=== PATIENT | female | born 1990 | race Caucasian/White ===

== ENCOUNTER 2016-10-31 15:31 | Emergency (ER) | payer SELFPAY ==
[~2016-10-31] VITALS: Ht 160 cm; Wt 56.0 kg
[2016-10-31 15:57] VITALS: BP 97/71; PULSE 97; RESP 18; TEMP 100; O2SAT 98
--- NOTE | 2016-10-31 16:05 | PD ---
HPI Chief Complaint: Cold / Flu Symptoms Time Seen by Provider: 16:05 Travel History International Travel<30 days: No Contact w/Intl Traveler<30days: No Traveled to known affect area: No History of Present Illness HPI 26-year-old female presents to the emergency department with 2 day history of increasing fever, chills, myalgias, cough, and generalized malaise. Patient has decreased appetite but no nausea vomiting or diarrhea. Patient is coughing clear phlegm but no shortness of breath or wheezing. Patient denies abdominal pain or urinary symptoms. She is allergic to codeine. PFS Past Medical History ?: Not LMP: 2-3 WEEKS AGO Social History Alcohol Use: No Tobacco Use: No Substance Use: No Allergies-Medications (Allergen,Severity, Reaction): Coded Allergies: Codeine (Verified Allergy, Intermediate, RASH, 10/31/16) Reported Meds & Prescriptions Reported Meds & Active Scripts Active Tamiflu (Oseltamivir Phosphate) 75 Mg Cap 75 Mg PO BID 5 Days Review of Systems Except as stated in HPI: all other systems reviewed are Neg General / Constitutional: Positive: Fever, Chills Eyes: No: Visual changes HENT: Positive: Headaches, Rhinitis, Rhinorrhea, Congestion, No: Vertigo, Lightheadedness, Sore Throat, Nosebleed, Neck Stiffness, Neck Pain, Gingival Bleeding, Dental Difficulties, Ear Discharge, Earache Cardiovascular: No: Chest Pain or Discomfort Respiratory: Positive: Cough, No: Shortness of Breath, Wheezing, Sneezing Gastrointestinal: Positive: Loss of Appetite, No: Nausea, Vomiting, Diarrhea, Abdominal Pain Genitourinary: No: Dysuria Musculoskeletal: No: Pain Skin: No Rash Neurologic: No: Weakness Psychiatric: No: Depression Endocrine: No: Polydipsia Hematologic/Lymphatic: No: Easy Bruising Physical Exam Narrative GENERAL: Patient appears ill but not septic. SKIN: Warm and dry. Mild pallor with normal turgor. HEAD: Atraumatic. Normocephalic. EYES: Pupils equal and round. No scleral icterus. No injection or drainage. ENT: No nasal bleeding or discharge. Mucous membranes pink and moist. TMs are clear bilaterally. Pharynx is unremarkable. Airway is patent. NECK: Trachea midline. Supple and nontender. CARDIOVASCULAR: Regular rate and rhythm. RESPIRATORY: No accessory muscle use. Clear to auscultation. Breath sounds equal bilaterally. GASTROINTESTINAL: Abdomen soft, non-tender, nondistended. Hepatic and splenic margins not palpable. MUSCULOSKELETAL: Extremities without clubbing, cyanosis, or edema. No obvious deformities. NEUROLOGICAL: Awake and alert. No obvious cranial nerve deficits. Motor grossly within normal limits. Five out of 5 muscle strength in the arms and legs. Normal speech. PSYCHIATRIC: Appropriate mood and affect; insight and judgment normal. Data Data Last Documented VS Vital Signs Date Time Temp Pulse Resp B/P Pulse Ox O2 Delivery O2 Flow Rate FiO2 10/31/16 15:57 100.0 97 18 97/71 98 MDM Medical Decision Making Medical Screen Exam Complete: Yes Emergency Medical Condition: Yes Differential Diagnosis Febrile illness. Viral illness. Influenza. Narrative Course Patient is medically stable at time of exam. Based on the patient's history and physical I feel that she does have influenza. I will treat the patient with Tamiflu 75 mg twice a day 5 days. Patient is to rest push fluids take Tylenol and ibuprofen as needed. Patient to refrain from working for the next 5 days or until fever free for 24 hours. Patient can return to emergency Department with worsening symptoms if necessary. Diagnosis Primary Impression: Influenza Patient Instructions: General Instructions, H1N1 Influenza (ED) Additional Instructions: Based on the patient's history and physical I feel that she does have influenza. I will treat the patient with Tamiflu 75 mg twice a day 5 days. Patient is to rest push fluids take Tylenol and ibuprofen as needed. Patient to refrain from working for the next 5 days or until fever free for 24 hours. Patient can return to emergency Department with worsening symptoms if necessary. Scripts Oseltamivir (Tamiflu)75 Mg Cap75 Mg PO BID 5 Days Ref 0 Prov:Lia Osorio MD 10/31/16 Disposition: 01 DISCHARGE HOME Condition: Stable Joseph Vivar Oct 31, 2016 16:05
[2016-10-31] MEDS ORDERED: OSEL75 PO (16:09)
== END 2016-10-31 16:22 | disposition home or self-care (01) ==
LOC: PHEFT 15:31
DX: R50.9 Fever, unspecified (principal); J10.89 Influenza due to other identified influenza virus with other manifestations
CPT/HCPCS: 99283

== ENCOUNTER 2017-09-25 22:35 | Emergency (ER) | payer MEDICAID ==
[~2017-09-25 22:35] MED LIST: OSEL75 PO
[2017-09-25 22:43] VITALS: BP 130/78; PULSE 93; RESP 20; TEMP 97.9; O2SAT 100
[2017-09-26] MEDS ORDERED: KETOROLAC TROMETHAMINE 60 MG/2 ML (IM) VIAL IM ONE
[2017-09-26 00:42] LABS: BILIRUBIN, URINE NEG (NEG); BLOOD, URINE NEG (NEG); GLUCOSE,URINE NEG (NEG); KETONE, URINE NEG (NEG); NITRITE,URINE POS (NEG); URINE LEUKOCYTE ESTERASE TRACE (NEG)
--- NOTE | 2017-09-26 00:43 | PD ---
HPI . Left rib pain Chief Complaint: Musculoskeletal Complaint Time Seen by Provider: 23:59 Travel History International Travel<30 days: No Contact w/Intl Traveler<30days: No Traveled to known affect area: No History of Present Illness HPI This patient presents with chief complaint of pain in her left rib cage for about 2 weeks. She rates the pain 9/10 and states that it is exacerbated by movement and breathing. She denies any cough fever or difficulty breathing. She denies any urinary tract symptoms such as dysuria, frequency or urgency. This patient is . PFSH Past Medical History Medical History: Denies Significant Hx Diminished Hearing: No Tetanus Vaccination: Unknown Influenza Vaccination: No ?: LMP: APPROX AUG 03 2017 : 2 Para: 1 Past Surgical History Surgical History: No Previous Surgery Social History Alcohol Use: No Tobacco Use: No Substance Use: No Allergies-Medications (Allergen,Severity, Reaction): Coded Allergies: codeine (Unverified Allergy, Intermediate, RASH, 04/17/17) Reported Meds & Prescriptions Reported Meds & Active Scripts Active Tamiflu (Oseltamivir Phosphate) 75 Mg Cap 75 Mg PO BID 5 Days Review of Systems Except as stated in HPI: all other systems reviewed are Neg General / Constitutional: No: Fever, Chills Cardiovascular: No: Chest Pain or Discomfort Respiratory: No: Cough, Shortness of Breath Gastrointestinal: No: Nausea, Vomiting, Diarrhea Genitourinary: Positive: Flank Pain, No: Urgency, Frequency, Dysuria Physical Exam Narrative GENERAL: Awake and alert and in no distress. SKIN: warm/dry. Normal color and turgor. HEAD: Normocephalic. Atraumatic. EYES: Pupils equal and round. No scleral icterus. No injection or drainage. ENT: No nasal bleeding or discharge. Mucous membranes pink and moist. NECK: Trachea midline. Full range of motion without pain.. CARDIOVASCULAR: Regular rate and rhythm. Heart sounds are normal. RESPIRATORY: No accessory muscle use. Clear to auscultation. Breath sounds equal bilaterally. Tenderness to palpation in the left lateral chest wall. GASTROINTESTINAL: Abdomen soft. Nontender. Bowel sounds present. Nondistended. No CVA tenderness. MUSCULOSKELETAL: No obvious deformities. NEUROLOGICAL: Awake and alert. No obvious cranial nerve deficits. Motor grossly within normal limits. Normal speech. PSYCHIATRIC: Appropriate mood and affect; insight and judgment normal. Data Data Last Documented VS Vital Signs Date Time Temp Pulse Resp B/P (MAP) Pulse Ox O2 Delivery O2 Flow Rate FiO2 09/26/17 00:17 20 09/25/17 22:43 97.9 93 130/78 (95) 100 Orders Orders Ketorolac Inj (Toradol Inj) (09/26/17 00:00) Urinalysis - C+S If Indicated (09/26/17 00:30) Ed Urine Pregnancytest Poc (09/26/17 00:30) Urine Culture (09/26/17 00:30) Labs Laboratory Tests Test 09/26/17 00:30 Urine Color YELLOW Urine Turbidity MOD Urine pH 6.0 Urine Specific [place] 1.021 Urine Protein NEG mg/dL Urine Glucose (UA) NEG mg/dL Urine Ketones NEG mg/dL Urine Occult Blood NEG Urine Nitrite POS Urine Bilirubin NEG Urine Leukocyte Esterase TRACE Urine WBC 3-5 /hpf Urine Squamous Epithelial Cells 0-5 /hpf Urine Amorphous Sediment MOD Urine Bacteria MANY /hpf Urine Mucus MOD /lpf Microscopic Urinalysis Comment CULTURE INDICATED MDM Medical Decision Making Medical Screen Exam Complete: Yes Emergency Medical Condition: Yes Interpretation(s) EKG shows a sinus rhythm with no acute ischemic change. Differential Diagnosis Differential diagnosis of chest pain includes but is not limited to musculoskeletal pain, pulmonary embolism, acute coronary syndrome, pneumonia, pleurisy Narrative Course This patient presents complaining with left sided chest wall pain. The pain is musculoskeletal in nature. She does not have dyspnea, tachypnea, tachycardia. She is . A urinalysis was obtained. UA>>pos nit, trace LE, many bact, mod mucous----so her UA is equivocal. Since she is , she will be treated with Macrobid. Diagnosis Primary Impression: Left flank pain Additional Impression: Possible urinary tract infection Patient Instructions: Flank Pain (ED), General Instructions Med/Other Pt SpecificInfo: Prescription(s) given Scripts Nitrofurantoin Monohydrate Macrocrystals (Macrobid) 100 Mg Cap 100 MG PO BID for Infection for 5 Days, #10 CAP 0 Refills Prov: Lia Osorio MD 09/26/17 Disposition: 01 DISCHARGE HOME Condition: Stable Lia Osorio MD Sep 26, 2017 00:43
[2017-09-26 01:02] LABS: URINE COLOR YELLOW (YELLW/STRAW)
[2017-09-26 01:03] LABS: AMORPHOUS SEDIMENT, URINE MOD; BACTERIA, URINE MANY /hpf; MUCUS URINE MOD /lpf (OCC); SQUAMOUS EPITHELIAL CELL URINE 0-5 /hpf (0-5)
[2017-09-26] MEDS ORDERED: MACR100C2 PO (01:23)
[2017-09-26 01:45] VITALS: BP 128/74
--- NOTE | 2017-09-26 12:14 | EKG ---
Date Performed: 09/25/2017 Time Performed: 22:50:53 PTAGE: 27 years EKG: Sinus rhythm WITH SINUS ARRHYTHMIA WITH SHORT UT INTERVAL BORDERLINE ECG NO PREVIOUS TRACING DOCTOR: Ivelisse Adler Interpretating Date/Time 09/26/2017 12:13:08
== END 2017-09-26 03:37 | disposition home or self-care (01) ==
LOC: PHED 22:35
DX: O26.899 Other specified pregnancy related conditions, unspecified trimester (principal); R10.9 Unspecified abdominal pain; R82.71 Bacteriuria; Z3A.00 Weeks of gestation of pregnancy not specified
CPT/HCPCS: 81001; 84703; 87077; 87086; 87186; 93005; 99284

== ENCOUNTER 2017-11-05 17:30 | Observation (INO) | payer MEDICAID, OTHER ==
[~2017-11-05] VITALS: Ht 160 cm; Wt 64.0 kg
[~2017-11-05 17:30] MED LIST changes: +MACR100C2 PO
[2017-11-05 17:44] VITALS: BP 112/60; PULSE 101; RESP 16; TEMP 99.9; O2SAT 99
[2017-11-05 17:54] LABS: BILIRUBIN, URINE NEG (NEG); BLOOD, URINE SMALL (NEG); GLUCOSE,URINE 500 mg/dL (NEG); KETONE, URINE 80 OR GREATER mg/dL (NEG); NITRITE,URINE POS (NEG); URINE COLOR YELLOW (YELLW/STRAW); URINE LEUKOCYTE ESTERASE SMALL (NEG)
[2017-11-05 18:27] LABS: WHITE BLOOD CELL CLUMPS FEW
[2017-11-05 18:28] LABS: BACTERIA, URINE FEW /hpf
[2017-11-05] MEDS ORDERED: SODIUM CHLOR 0.9% 1000 ML INJ 1,000 ML IV SCH ×2 (19:55→22:00)
[2017-11-05] MEDS ORDERED: ACETAMINOPHEN 325 MG TAB PO ONE (20:00)
[2017-11-05] MEDS ORDERED: cefTRIAXone INJ 1,000 MG in SODIUM CHLORIDE 0.9% INJ 100 ML IV ONE (20:00)
[2017-11-05 20:23] LABS: AUTOMATED NEUTROPHIL # 9.9 TH/MM3 (1.8-7.7); BASOPHIL % 0.3 % (0.0-2.0); EOSINOPHIL % 0.2 % (0.0-4.0); HEMATOCRIT 33.5 % (35.0-46.0); HEMOGLOBIN 11.1 GM/DL (11.6-15.3); LYMPH % 8.3 % (9.0-44.0); MEAN CELL VOLUME 95.8 FL (80.0-100.0); MEAN CORPUSCULAR HEMOGLOBIN 31.7 PG (27.0-34.0); MEAN PLATELET VOLUME 6.5 FL (7.0-11.0); MONO % 8.4 % (0.0-8.0); NEUT % 82.8 % (16.0-70.0); PLATELET COUNT 193 TH/MM3 (150-450); RED BLOOD COUNT 3.49 MIL/MM3 (4.00-5.30); RED CELL DISTRIBUTION WIDTH 13.2 % (11.6-17.2); WHITE BLOOD COUNT 11.9 TH/MM3 (4.0-11.0)
[2017-11-05 20:37] LABS: CHLORIDE 102 MEQ/L (98-107); SODIUM (NA) 133 MEQ/L (136-145)
[2017-11-05 20:42] LABS: CALCIUM 8.4 MG/DL (8.5-10.1)
[2017-11-05 20:43] LABS: ALBUMIN 2.6 GM/DL (3.4-5.0); BICARBONATE 21.9 MEQ/L (21.0-32.0); BLOOD UREA NITROGEN 7 MG/DL (7-18); GLUCOSE,RANDOM 83 MG/DL (74-106)
[2017-11-05 20:46] LABS: ALT (GPT) 14 U/L (10-53); AST (GOT) 13 U/L (15-37); CREATININE 0.62 MG/DL (0.50-1.00); GLOMERULAR FILTRATION RATE 114 ML/MIN (>89)
[2017-11-05 20:47] LABS: TOTAL BILIRUBIN ADULT 0.5 MG/DL (0.2-1.0)
[2017-11-05 20:49] LABS: ALKALINE PHOSPHATASE 54 U/L (45-117)
--- NOTE | 2017-11-05 21:23 | RADRPT ---
EXAM DATE/TIME: 11/05/2017 20:31 [facility] COMPARISON: No previous studies available for comparison. INDICATIONS : Right flank pain. MEDICAL HISTORY : . SURGICAL HISTORY : None. ENCOUNTER: Initial ACUITY: 1 day PAIN SCORE: 7/10 LOCATION: Bilateral flank MEASUREMENTS: RIGHT KIDNEY: 12.4 x 6.8 x 7.0 cm LEFT KIDNEY: 11.1 x 4.2 x 5.2 cm FINDINGS: RIGHT KIDNEY: Renal cortex is normal thickness. There is moderate dilation of the collecting system and dilation o f the right ureter measuring up to 8 mm in size. LEFT KIDNEY: Renal cortex is normal in thickness and echotexture. No hydronephrosis, stone, or mass. BLADDER: Within normal limits given the degree of distension. A prevoid volume is estimated at 193 mL and pos t void volume is estimated at 50 mL. Gestational sac is seen in the pelvis. CONCLUSION: Right-sided hydronephrosis and hydroureter. Guy Goldsmith MD on November 05, 2017 at 21:19 Board Certified Radiologist. This report was verified electronically.
--- NOTE | 2017-11-05 21:43 | PD ---
HPI Chief Complaint: Complaint Time Seen by Provider: 19:51 Travel History International Travel<30 days: No Contact w/Intl Traveler<30days: No Traveled to known affect area: No History of Present Illness HPI 27-year-old female that presents to the ED for evaluation of right flank pain. Patient has had right flank pain for today. Per patient she has a history of kidney infections in the past. She is about 4 months per patient. She had an ultrasound when she was 6 weeks and otherwise she has not had any since. This is having dysuria and polyuria. Denies any problems with the baby and feels like the baby is moving. No other medical issues. No nausea or vomiting. She does not know the [employer] she sees but she tells me that she goes to the [facility]. She denies any injury or trauma. No bleeding or discharge. Allergy to codeine [facility] Past Medical History Medical History: Denies Significant Hx Diminished Hearing: No Tetanus Vaccination: > 5 Years Influenza Vaccination: No ?: : 2 Para: 1 Social History Alcohol Use: No Tobacco Use: No Substance Use: No Allergies-Medications (Allergen,Severity, Reaction): Coded Allergies: codeine (Unverified Allergy, Intermediate, RASH, 11/05/17) Reported Meds & Prescriptions Reported Meds & Active Scripts Active No Active Prescriptions or Reported Medications Review of Systems Except as stated in HPI: all other systems reviewed are Neg Physical Exam Narrative GENERAL: SKIN: Warm and dry. HEAD: Atraumatic. Normocephalic. EYES: Pupils equal and round. No scleral icterus. No injection or drainage. ENT: No nasal bleeding or discharge. Mucous membranes pink and moist. NECK: Trachea midline. No JVD. CARDIOVASCULAR: Regular rate and rhythm. RESPIRATORY: No accessory muscle use. Clear to auscultation. Breath sounds equal bilaterally. GASTROINTESTINAL: Abdomen soft, non-tender, nondistended. Hepatic and splenic margins not palpable. MUSCULOSKELETAL: Extremities without clubbing, cyanosis, or edema. No obvious deformities. Patient has reproducible CVA tenderness on the right side. NEUROLOGICAL: Awake and alert. No obvious cranial nerve deficits. Motor grossly within normal limits. Five out of 5 muscle strength in the arms and legs. Normal speech. PSYCHIATRIC: Appropriate mood and affect; insight and judgment normal. Data Data Last Documented VS Vital Signs Date Time Temp Pulse Resp B/P (MAP) Pulse Ox O2 Delivery O2 Flow Rate FiO2 11/05/17 17:44 99.9 101 16 112/60 (77) 99 Orders Orders Urinalysis - C+S If Indicated (11/05/17 17:47) Urine Culture (11/05/17 17:50) Beta Hcg (Quant/Titer) (11/05/17 19:55) Complete Blood Count With Diff (11/05/17 19:55) Comprehensive Metabolic Panel (11/05/17 19:55) Lipase (11/05/17 19:55) Iv Access Insert/Monitor (11/05/17 19:55) Sodium Chlor 0.9% 1000 Ml Inj (Ns 1000 M (11/05/17 19:55) Ceftriaxone Inj (Rocephin Inj) (11/05/17 20:00) Acetaminophen (Tylenol) (11/05/17 20:00) Ed Poc Ultrasound (11/05/17 ) Us Kidney/Renal/Bladder (11/05/17 ) Lactic Acid Sepsis Protocol (11/05/17 20:20) Admit Order (Ed Use Only) (11/05/17 21:51) Labs Laboratory Tests Test 11/05/17 17:50 11/05/17 20:15 11/05/17 20:30 Urine Color YELLOW Urine Turbidity SL CLOUDY Urine pH 5.0 Urine Specific [place] 1.015 Urine Protein 30 mg/dL Urine Glucose (UA) 500 mg/dL Urine Ketones 80 OR GREATER mg/dL Urine Occult Blood SMALL Urine Nitrite POS Urine Bilirubin NEG Urine Urobilinogen 0.2 MG/DL Urine Leukocyte Esterase SMALL Urine RBC 4-9 /hpf Urine WBC 25-49 /hpf Urine WBC Clumps FEW Urine Squamous Epithelial Cells 6-8 /hpf Urine Bacteria FEW /hpf Microscopic Urinalysis Comment CULTURE INDICATED White Blood Count 11.9 TH/MM3 Red Blood Count 3.49 MIL/MM3 Hemoglobin 11.1 GM/DL Hematocrit 33.5 % Mean Corpuscular Volume 95.8 FL Mean Corpuscular Hemoglobin 31.7 PG Mean Corpuscular Hemoglobin Concent 33.0 % Red Cell Distribution Width 13.2 % Platelet Count 193 TH/MM3 Mean Platelet Volume 6.5 FL Neutrophils (%) (Auto) 82.8 % Lymphocytes (%) (Auto) 8.3 % Monocytes (%) (Auto) 8.4 % Eosinophils (%) (Auto) 0.2 % Basophils (%) (Auto) 0.3 % Neutrophils # (Auto) 9.9 TH/MM3 Lymphocytes # (Auto) 1.0 TH/MM3 Monocytes # (Auto) 1.0 TH/MM3 Eosinophils # (Auto) 0.0 TH/MM3 Basophils # (Auto) 0.0 TH/MM3 CBC Comment DIFF FINAL Differential Comment Blood Urea Nitrogen 7 MG/DL Creatinine 0.62 MG/DL Random Glucose 83 MG/DL Total Protein 7.0 GM/DL Albumin 2.6 GM/DL Calcium Level 8.4 MG/DL Alkaline Phosphatase 54 U/L Aspartate Amino Transf (AST/SGOT) 13 U/L Alanine Aminotransferase (ALT/SGPT) 14 U/L Total Bilirubin 0.5 MG/DL Sodium Level 133 MEQ/L Potassium Level 3.6 MEQ/L Chloride Level 102 MEQ/L Carbon Dioxide Level 21.9 MEQ/L Anion Gap 9 MEQ/L Estimat Glomerular Filtration Rate 114 ML/MIN Lipase 110 U/L Human Chorionic Gonadotropin, Quant 72557 MIU/ML Lactic Acid Level 0.8 mmol/L MDM Medical Decision Making Medical Screen Exam Complete: Yes Emergency Medical Condition: Yes Medical Record Reviewed: Yes Interpretation(s) Last Impressions Renal Ultrasound 11/05/17 0000 Signed Impressions: Service Date/Time: Sunday, November 05, 2017 20:31 - CONCLUSION: Right-sided hydronephrosis and hydroureter. Guy Goldsmith MD CBC & BMP Diagram 11/05/17 20:15 Total Protein 7.0, Albumin 2.6 L, Calcium Level 8.4 L, Alkaline Phosphatase 54, Aspartate Amino Transf (AST/SGOT) 13 L, Alanine Aminotransferase (ALT/SGPT) 14, Total Bilirubin 0.5 UA shows signs of UTI Differential Diagnosis Pyelonephritis versus UTI versus cystitis versus sepsis Narrative Course 27-year-old female that presents to the ED for evaluation of right flank pain. Patient was properly examined and was found to have signs and symptoms concerning for pyelonephritis. Labs and imaging were done. My attending perform an ultrasound at bedside that showed IUP of about 16 weeks. Please refer to her note. Labs and imaging that showed hydronephrosis as well as UTI with leukocytosis. Patient still very symptomatic. My attending recommends that I speak with the patient's GENETIC ENGINEER which appears to be Dr. Cruz's nurse practitioner. A call has been placed to them. I spoke with Dr. Cruz over the phone who agrees to admission to himself but he wants the patient to be admitted to the main hospital as he does not come here. He states that the patient can take narcotic pain medication to help alleviate some of her symptoms and wants me to continue patient on the ceftriaxone as well as started patient on 100 mls on normal saline. Patient was told this and agrees to admission. Patient was admitted. Diagnosis Primary Impression: Pyelonephritis affecting in first trimester Admitting Information Admitting Physician Requests: Admit Scripts No Active Prescriptions or Reported Meds Efra To Nov 05, 2017 21:43
--- NOTE | 2017-11-05 21:48 | PD ---
Physical Exam Date Seen by Provider: Nov 05, 2017 Time Seen by Provider: 21:00 Narrative GENERAL: Well-developed well-nourished female no acute distress no respiratory distress SKIN: Warm and dry. CARDIOVASCULAR: Regular rate and rhythm without murmurs, gallops, or rubs. RESPIRATORY: Breath sounds equal bilaterally. No accessory muscle use. GASTROINTESTINAL: Abdomen soft, non-tender, nondistended. Data Data Last Documented VS Vital Signs Date Time Temp Pulse Resp B/P (MAP) Pulse Ox O2 Delivery O2 Flow Rate FiO2 11/05/17 17:44 99.9 101 16 112/60 (77) 99 Orders Orders Urinalysis - C+S If Indicated (11/05/17 17:47) Urine Culture (11/05/17 17:50) Beta Hcg (Quant/Titer) (11/05/17 19:55) Complete Blood Count With Diff (11/05/17 19:55) Comprehensive Metabolic Panel (11/05/17 19:55) Lipase (11/05/17 19:55) Iv Access Insert/Monitor (11/05/17 19:55) Sodium Chlor 0.9% 1000 Ml Inj (Ns 1000 M (11/05/17 19:55) Ceftriaxone Inj (Rocephin Inj) (11/05/17 20:00) Acetaminophen (Tylenol) (11/05/17 20:00) Ed Poc Ultrasound (11/05/17 ) Us Kidney/Renal/Bladder (11/05/17 ) Lactic Acid Sepsis Protocol (11/05/17 20:20) Admit Order (Ed Use Only) (11/05/17 21:51) Labs Laboratory Tests Test 11/05/17 17:50 11/05/17 20:15 11/05/17 20:30 Urine Color YELLOW Urine Turbidity SL CLOUDY Urine pH 5.0 Urine Specific [place] 1.015 Urine Protein 30 mg/dL Urine Glucose (UA) 500 mg/dL Urine Ketones 80 OR GREATER mg/dL Urine Occult Blood SMALL Urine Nitrite POS Urine Bilirubin NEG Urine Urobilinogen 0.2 MG/DL Urine Leukocyte Esterase SMALL Urine RBC 4-9 /hpf Urine WBC 25-49 /hpf Urine WBC Clumps FEW Urine Squamous Epithelial Cells 6-8 /hpf Urine Bacteria FEW /hpf Microscopic Urinalysis Comment CULTURE INDICATED White Blood Count 11.9 TH/MM3 Red Blood Count 3.49 MIL/MM3 Hemoglobin 11.1 GM/DL Hematocrit 33.5 % Mean Corpuscular Volume 95.8 FL Mean Corpuscular Hemoglobin 31.7 PG Mean Corpuscular Hemoglobin Concent 33.0 % Red Cell Distribution Width 13.2 % Platelet Count 193 TH/MM3 Mean Platelet Volume 6.5 FL Neutrophils (%) (Auto) 82.8 % Lymphocytes (%) (Auto) 8.3 % Monocytes (%) (Auto) 8.4 % Eosinophils (%) (Auto) 0.2 % Basophils (%) (Auto) 0.3 % Neutrophils # (Auto) 9.9 TH/MM3 Lymphocytes # (Auto) 1.0 TH/MM3 Monocytes # (Auto) 1.0 TH/MM3 Eosinophils # (Auto) 0.0 TH/MM3 Basophils # (Auto) 0.0 TH/MM3 CBC Comment DIFF FINAL Differential Comment Blood Urea Nitrogen 7 MG/DL Creatinine 0.62 MG/DL Random Glucose 83 MG/DL Total Protein 7.0 GM/DL Albumin 2.6 GM/DL Calcium Level 8.4 MG/DL Alkaline Phosphatase 54 U/L Aspartate Amino Transf (AST/SGOT) 13 U/L Alanine Aminotransferase (ALT/SGPT) 14 U/L Total Bilirubin 0.5 MG/DL Sodium Level 133 MEQ/L Potassium Level 3.6 MEQ/L Chloride Level 102 MEQ/L Carbon Dioxide Level 21.9 MEQ/L Anion Gap 9 MEQ/L Estimat Glomerular Filtration Rate 114 ML/MIN Lipase 110 U/L Human Chorionic Gonadotropin, Quant 91890 MIU/ML Lactic Acid Level 0.8 mmol/L [facility] Medical Record Reviewed: Yes Supervised Visit with MARCO ANTONIO: Yes (I, Dr. Dr Bland, have reviewed the advance practice practitioner's documentation and am in agreement, met with the patient face to face, made the diagnosis, and the medical decision making was done by me. *My assessment and Findings: 15 week female presents with frequency discomfort without vaginal discharge, vaginal bleeding or fluid leak concerning for uti with flank pain concerning for pyelnephritis and or obstructive uropathy exam consistent with second trimester and abnormal UA and US; agree with administration of iv fluids iv antibiotics and admission for iv antibiotics.) Differential Diagnosis UTI, pyelonephritis, obstructive uropathy, , sepsis Narrative Course Patient identified to have abnormal urinalysis; renal US ordered After informed verbal consent using curvilinear probe in the transverse and longitudinal views single intrauterine identified with active fetus and heart rate of 152 Renal ultrasound was performed and identified: right hydroureter and hydronephrosis; with abnormal urinalysis abnormal ultrasound patient will need admission for IV antibiotics for pyelonephritis with obstructive uropathy. Diagnosis Primary Impression: Pyelonephritis affecting in first trimester Admitting Information Admitting Physician Requests: Admit Trish Bland MD Nov 05, 2017 21:48
[2017-11-05 21:57] VITALS: BP 98/62; PULSE 92; RESP 16; O2SAT 98
[2017-11-05] MEDS ORDERED: MORPHINE SULFATE 2 MG/ML INJ IV PUSH ONE (22:00)
[2017-11-05] MEDS ORDERED: ONDANSETRON HCL 4 MG/2 ML VIAL IV PUSH ONE (22:00)
[2017-11-05 22:30] VITALS: BP 103/71; PULSE 90; RESP 18; O2SAT 100
[2017-11-06 00:38] VITALS: BP 104/60; PULSE 85; RESP 16; TEMP 98.9
[2017-11-06] MEDS ORDERED: ZOLPIDEM TARTRATE 5 MG TAB PO PRN (01:00)
[2017-11-06] MEDS ORDERED: oxyCODONE/ACETAMINOPHEN 5 MG/325 MG TAB PO PRN ×2 (01:00→01:15)
[2017-11-06] MEDS: LACTATED RINGER'S 1000 ML INJ 1,000 ML IV SCH ×2 (01:06→09:27)
[2017-11-06] MEDS ORDERED: PRENTAB7 (01:23)
[2017-11-06 04:02] VITALS: RESP 18; TEMP 100.2
[2017-11-06 04:03] VITALS: BP 103/55; PULSE 100
[2017-11-06] MEDS ORDERED: diphenhydrAMINE HCL 50 MG/ML VIAL ONE (04:13)
[2017-11-06] MEDS ORDERED: diphenhydrAMINE HCL 50 MG/ML VIAL IV PRN (05:00)
[2017-11-06 07:53] VITALS: BP 101/57; PULSE 87; TEMP 98.9
[2017-11-06 12:07] VITALS: BP 100/58; PULSE 92; RESP 16; TEMP 99
--- NOTE | 2017-11-06 12:28 | HHI.PR ---
[employer] Note Note pt resting feeling better c/o dull ache to right flank area voiding without difficulty abd soft and nontender heart normal rhythm and rate lungs CTA anterior and posterior + bowel sounds no swelling, redness or pain to lower extremities planning for dc home today will give another dose of Rocephin per Charley Francis Nov 06, 2017 12:28
[2017-11-06] MEDS ORDERED: cefTRIAXone INJ 1,000 MG in SODIUM CHLORIDE 0.9% INJ 100 ML IV SCH (13:00)
[2017-11-06 15:00] VITALS: TEMP 98.7
[2017-11-06] MEDS ORDERED: cefTRIAXone 1,000 MG/NS 100 ML IV SCH ×2 (20:00)
--- NOTE | 2017-11-08 16:08 | MH ---
cc: Donna Wilburn MD DATE OF ADMISSION: 11/05/2017 HISTORY OF PRESENT ILLNESS: This is a 27-year-old female, para 1-0-0-1, whose last menstrual period and early ultrasound put her approximately 16 weeks . She is a patient in our office and has been followed with her new OB visit only so far. She presented to [facility] with right flank pain for 1 day. She has a history of pyelonephritis in the past according to the emergency room doctors and our history as well. She was having lower back pain and she denies any fevers, chills. She has no dysuria, hematuria. She denies any injury or trauma to her back. No bleeding, no rupture of membranes. PAST OB HISTORY: She is para 1-0-0-1. PAST [employer] HISTORY: Pap smear was in 2012 which was negative by history. PAST SURGICAL HISTORY: Negative. PAST MEDICAL HISTORY: Remarkable for pyelonephritis, frequent bladder infections, according to our records and to the emergency room department records. She denies any dysuria, polyuria. No fevers or chills but she is having this lower back pain. She denies any rupture of membranes, bleeding, trauma or injury. PAST OB HISTORY: Para 1-0-0-1. SOCIAL HISTORY: She denies alcohol, drugs or tobacco abuse. She is . FAMILY HISTORY: Noncontributory. ALLERGIES: CODEINE WHICH WAS NOT IN OUR RECORDS. CURRENT MEDICATIONS: vitamins 1 p.o. daily. REVIEW OF SYSTEMS: She denies any fevers, chills, nausea or vomiting at this time. She denies any headaches or visual changes. No shortness of breath or chest pain. She denies any micturition problems. She does complain of lower back pain. There is no constipation or diarrhea. PHYSICAL EXAMINATION: GENERAL: Well-developed, well-nourished female, in no acute distress. HEENT: Normocephalic, atraumatic. NECK: Supple. Trachea is in the midline. No thyromegaly or adenopathy. CHEST: Clear to auscultation and percussion. HEART: Regular rate and rhythm. ABDOMEN: Gravid, nontender. The fundus is nontender. The bladder is nontender. BACK: Her lower back, the paraspinal muscles are slightly tender in the lumbar area. There is absolutely no CVA tenderness. EXTREMITIES: No clubbing, cyanosis or edema. LABORATORY DATA: Her laboratory workup reveals a urine which reveals a small amount of blood, positive nitrites, numerous white blood cells with a few white blood cell clumps. Her white count is 11.9, her hemoglobin is 11.1, hematocrit 33, no left shift. Her sodium is slightly low at 133, her potassium is 3.6. ASSESSMENT AND PLAN: 1. Intrauterine at 16 weeks. 2. Early pyelonephritis. This seems to have resolved. She did get some Rocephin in the emergency department last night and she has been on intravenous fluids. I went and looked at the plate, she is growing gram-negative sophie, most likely Escherichia coli. The report is not out yet but we need to get the sensitivities and make sure that the antibiotic we chose, Keflex, will cover the infection. She is told to call back in a couple of days to check that. 3. Anemia. Will get her started on some iron in the very near future. 4. QUESTIONABLE ALLERGY TO CODEINE. Will ask her more about this when she comes in to the office. R. Srikanth Wilburn MD RJV/TRACE/naty , 03:27 PM , 03:50 PM
== END 2017-11-06 15:30 | disposition home or self-care (01) ==
LOC: PHED 17:30 → OBSVTOIN 21:53 → INTOOBSV 21:53 → PHEDA 21:53 → H2EA 11-06 00:24
PROVIDERS: ADMIT Obstetrics & Gynecology; ATTEND Obstetrics & Gynecology
DX: O23.02 Infections of kidney in pregnancy, second trimester (principal); N13.6 Pyonephrosis; O23.42 Unspecified infection of urinary tract in pregnancy, second trimester; B96.20 Unspecified Escherichia coli [E. coli] as the cause of diseases classified elsewhere; O99.012 Anemia complicating pregnancy, second trimester; Z3A.16 16 weeks gestation of pregnancy; Z88.5 Allergy status to narcotic agent
CPT/HCPCS: 76775; 80053; 81001; 83605; 83690; 84702; 85025; 87077; 87086; 87186; 96361; 96365; 96374; 96375; 99285; G0378; J0696; J1200; J2270; J2405; J7030; J7120

== ENCOUNTER 2018-04-29 08:45 | Inpatient (IN) ==
[2018-04-29] MEDS ORDERED: Sodium Chlor 0.9% Inj 500 ML IV.SIG PRN (09:44)
[2018-04-29] MEDS ORDERED: Oxytocin 30 Units/500ml Premix 30 UNITS/500 ML BAG IV.SIG ONE (09:44)
[2018-04-29] MEDS ORDERED: Naloxone Inj 0.4 MG/ML Vial IV.PUSH PRN ×2 (09:44→15:53)
[2018-04-29] MEDS ORDERED: Sod Chloride 0.9% Inj 1,000 ML IV.CONT PRN (09:44)
[2018-04-29] MEDS ORDERED: fentaNYL Citrate Inj 100 MCG/2 ML Ampul IV.PUSH PRN ×2 (09:44)
[2018-04-29] MEDS ORDERED: Citric Acid/Sodium Citrate Liq 30 ML UDC PO SCH (09:45)
--- NOTE | 2018-04-29 10:28 | P.HPOB ---
Note Patient Name: Kenna Reyes Date of : 86 Patient Status: Inpatient Attending Provider: Chito Wilburn Date: 04/29/18 09:38 Initialization Date: 04/29/18 09:38 History of Present Illness Primary Care Physician: No Primary Care Physician History of Present Illness: 28-year-old 2 para 1 at 40 weeks gestation who comes today complaining of increasing contractions since 8 PM last night. She denies leakage of fluid or bleeding. She reports that she was 1 cm dilated in the office last week with Dr. Hale. She is now 3 cm, 90% effaced with irregular moderate strength contractions. Obstetrical history: She had 1 prior vaginal delivery, this is been complicated by pyelonephritis Review of Systems All other systems reviewed negative except as stated in HPI PMFSH - Medical / Surgical Hx Neg / Unobtainable Medical Problems Denied: Yes Surgical History: No Previous Surgery - Tobacco History Tobacco Use In Past 30 Days: No Smoking Status: Never smoker - Travel History Recent Travel in the [place] Within the Last 8 Weeks: No Recent Travel Out of the Country Within the Last 8 Weeks: No Medications and Allergies Allergies Allergy/AdvReac Type Severity Reaction Status Date / Time codeine Allergy Intermediate RASH Unverified 11/05/17 17:44 Exam Vital signs: Vital Signs 04/29/18 09:02 04/29/18 09:03 Temperature 98.3 F Pulse Rate 79 Respiratory Rate 18 Blood Pressure 117/81 Intake & Output 04/28/18 04/29/18 04/29/18 18:59 06:59 18:59 Weight 72.575 kg Narrative: GENERAL: Well-nourished, well-developed patient. SKIN: Warm and dry. HEAD: Normocephalic and atraumatic. EYES: No scleral icterus. No injection or drainage. ENT: No nasal drainage noted. Mucous membranes pink. Airway patent. NECK: Supple, trachea midline. No JVD. CARDIOVASCULAR: Regular rate and rhythm without murmurs, gallops, or rubs. RESPIRATORY: Breath sounds equal bilaterally. No accessory muscle use. ABDOMEN/GI: Abdomen soft, non-tender, bowel sounds present, no rebound, no guarding Gravid to [-] weeks size Fundal Height: [38-] GENITOURINARY: External Genitalia: intact and normal in appearance BUS glands: [Negative-] Cervix: [-] Dilatation: [-3] Effacement: [90-] Station: [-1-] Presentation: [-vtx] Membranes: [intact ] Uterine Contractions: [irreg, mod-] FHT's: Category: [2-] Baseline: [-110] Reactive: [-] Variability: [mod] Decels: [-n] EXTREMITIES: No cyanosis or edema. BACK: Nontender without obvious deformity. No CVA tenderness. NEUROLOGICAL: Awake and alert. Motor and sensory grossly within normal limits. Five out of 5 muscle strength in all muscle groups. Normal speech. Assessment and Plan - Plan Assessment: Multipara at 40 weeks gestation in prodromal labor, #2 category 2 heart rate with a low baseline of 110 with otherwise reassuring features including moderate variability and accelerations. Plan: Admit for labor management. The patient is GBS negative. Discharge Plan - Discharge Disposition Patient Disposition: 30 Still Patient - Physicians Team ED Provider: Robinson Bo Primary Care Provider: Primary Care Physici,No - Discharge Instructions Print Language: Wolof
[2018-04-29] MEDS ORDERED: Oxytocin 30 Units/500ml Premix 30 UNITS/500 ML BAG IV.SIG PRN (10:42)
[2018-04-29 11:05] LABS: Bacteria,Urine Occasional /hpf; Bilirubin,Urine Negative (Negative); Clarity,Urine Hazy (Clear); Color,Urine Yellow (Yellw/Straw); Glucose,Urine (UA) Negative (Negative); Leukocyte Esterase,Urine Moderate (Negative); Mucus,Urine Few /lpf (Occasional); Nitrite,Urine Negative (Negative); Specific Gravity,Urine 1.012 (1.002-1.035); Squamous Epithelial Cell,Urine 7 /hpf (0-5)
[2018-04-29 11:15] LABS: Amphetamine Screen,Urine Neg (Neg); Barbiturate Screen,Urine Neg (Neg); Cannabinoid Screen,Urine Neg (Neg); Cocaine Screen,Urine Neg (Neg)
[2018-04-29 11:16] LABS: Baso % (Auto) 0.5 % (0.0-2.0); Eos # (Auto) 0.1 th/mm3 (0.0-0.4); Hematocrit 35.2 % (35.0-46.0); Hemoglobin 12.3 gm/dL (11.6-15.3); Lymph # (Auto) 1.5 th/mm3 (1.0-4.8); Lymph % (Auto) 16.7 % (9.0-44.0); Mean Corpuscular Hemoglobin 36.1 pg (27.0-34.0); Mean Corpuscular Volume 103.2 fL (80.0-100.0); Mean Platelet Volume 8.3 fL (7.0-11.0); Mono # (Auto) 0.6 th/mm3 (0.0-0.9); Mono % (Auto) 6.6 % (0.0-8.0); Neut # (Auto) 6.6 th/mm3 (1.8-7.7); Neut % (Auto) 75.2 % (16.0-70.0); Platelet Count 170 th/mm3 (150-450); Red Blood Count 3.41 mil/mm3 (4.00-5.30); Red Cell Distribution Width 14.7 % (11.6-17.2); White Blood Count 8.7 th/mm3 (4.0-11.0)
[2018-04-29 11:17] LABS: Opiate Screen,Urine Neg (Neg)
[2018-04-29] MEDS ORDERED: fentaNYL 2MCG-Bupiv 0.125% Epi 150 ML EPIDURAL ONE (12:47)
[2018-04-29] MEDS ORDERED: Lidocaine PF 1% Inj 5 ML Vial ONE (12:50)
[2018-04-29] MEDS ORDERED: Lidocaaine 1.5%/Epinephrine 1:200,000 PF Inj 5 ML Amp ONE (12:50)
[2018-04-29] MEDS ORDERED: fentaNYL Citrate Inj 100 MCG/2 ML Ampul EPIDURAL ONE (13:12)
[2018-04-29] MEDS ORDERED: fentaNYL 2MCG-Bupiv 0.125% Epi 150 ML EPIDURAL PRN (13:30)
[2018-04-29] MEDS ORDERED: Witch Hazel 50%/Glyderin 12.5% 40 Pad Jar RECTAL PRN (15:53)
[2018-04-29] MEDS ORDERED: Oxytocin 30 Units/500ml Premix 30 UNITS/500 ML BAG IV.CONT PRN (15:53)
[2018-04-29] MEDS ORDERED: Benzocaine 20% Top Spray 60 ML Can TOPICAL PRN (15:53)
[2018-04-29] MEDS ORDERED: Bisacodyl 10 MG Supp RECTAL PRN (15:53)
[2018-04-29] MEDS ORDERED: Acetaminophen 325 MG Tablet PO PRN (15:53)
--- NOTE | 2018-04-29 15:57 | P.OBDELI ---
Weeks Gestation: 39 Patient Started Active Labor: Yes Active Labor Start Date: 04/29/18 Anesthesia: Epidural Episiotomy: midline Vaginal Delivery: Normal Nuchal Cord: None Delayed Cord Clamping (45 sec): Yes Placenta: Spontaneous delivery, Intact, Uterus explored +, 3 vessel cord Laceration: Episiotomy, 2 deg Repair: Vicryl running Infant: Male Male A score (1 min): 7 score (5 min): 8 (nice delivery of [place] over small 2nd degree MLE. Small 1st degree 1cm tear of the left labia repaired with 5-0 vicryl)
[2018-04-29] MEDS ORDERED: Diphtheria/Tetanus/Pertussis Vaccine Inj 0.5 ML Syringe IM ONE (17:00)
[2018-04-29] MEDS ORDERED: Measles/Mumps/Rubella Vaccine Inj 0.5 ML Vial SQ ONE (17:00)
[2018-04-29] MEDS ORDERED: Zolpidem Tartrate 5 MG Tablet PO PRN (21:00)
[2018-04-29] MEDS: Senna/Docusate Sodium 8.6/50 MG Tablet PO SCH (21:28)
[2018-04-30] MEDS ORDERED: Prenatal Vit/Ca/Iron/Folic Acid Tablet PO SCH (09:00)
[2018-04-30] MEDS: Senna/Docusate Sodium 8.6/50 MG Tablet PO SCH (09:05)
--- NOTE | 2018-04-30 13:20 | P.PNOB ---
Subjective Post day: 1 Objective Vital Signs/I&O: Vital Signs 04/29/18 13:27 04/29/18 13:45 04/29/18 14:00 Temperature Pulse Rate 64 68 Respiratory Rate 20 Blood Pressure 116/63 101/52 L 04/29/18 14:05 04/29/18 14:15 04/29/18 14:20 Temperature Pulse Rate 62 75 Respiratory Rate 20 Blood Pressure 104/63 105/64 04/29/18 14:45 04/29/18 14:55 04/29/18 15:00 Temperature 97.7 F Pulse Rate 93 H 77 114 H Respiratory Rate Blood Pressure 112/66 116/70 120/79 04/29/18 15:15 04/29/18 15:45 04/29/18 15:52 Temperature Pulse Rate 129 H 94 H Respiratory Rate Blood Pressure 131/59 L 118/84 04/29/18 16:00 04/29/18 16:16 04/29/18 16:31 Temperature Pulse Rate 183 H 72 Respiratory Rate Blood Pressure 106/86 94/74 L 113/79 04/29/18 17:00 04/29/18 17:45 04/29/18 20:00 Temperature 99.9 F H 99.1 F Pulse Rate 98 H 74 77 Respiratory Rate 16 18 Blood Pressure 98/75 L 108/72 109/68 04/30/18 07:44 04/30/18 07:45 Temperature 98.6 F Pulse Rate 62 Respiratory Rate 16 Blood Pressure 111/72 Intake & Output 04/29/18 04/30/18 04/30/18 18:59 06:59 18:59 Weight 72.575 kg Result Diagrams: 04/29/18 10:10 Objective Remarks: GENERAL: Well-nourished, well-developed patient. CARDIOVASCULAR: Regular rate and rhythm without murmurs, gallops, or rubs. RESPIRATORY: Breath sounds equal bilaterally. No accessory muscle use. ABDOMEN/GI: Abdomen soft, non-tender. Fundus: Firm, non-tender at umbilicus. GENITOURINARY: Light to moderate bleeding. EXTREMITIES: No cyanosis or edema, non-tender, without signs of DVT. Medications and IVs: Active Medications Acetaminophen (Tylenol) 650 mg PO Q4H PRN PRN Reason: PAIN SCALE 1 TO 2 Al Hydroxide/Mg Hydroxide (Milk Of Magnesia Liq) 30 ml PO Q12H PRN PRN Reason: Mild Constipation Benzocaine (Americaine 20% Top [place]) 1 spray TOPICAL Q4H PRN PRN Reason: For Perineum Discomfort Bisacodyl (Dulcolax Supp) 10 mg RECTAL DAILY PRN PRN Reason: SEVERE CONSITIPATION Oxytocin (Pitocin 30 Units/Ns 500 Ml Premix) 30 units in 500 mls @ 2 mls/hr IV.SIG TITRATE PRN; Protocol PRN Reason: For induction of labor Last Admin: 04/29/18 13:26 Dose: 2 milliunit/min, 2 mls/hr Fentanyl/Bupivacaine/Sodium Chlor (Fentanyl 2 Mcg-Bupiv 0.125% Epi) 150 mls @ 10 mls/hr EPIDURAL PRN PRN PRN Reason: for Labor Pain Oxytocin (Pitocin 30 Units/Ns 500 Ml Premix) 30 units in 500 mls @ 100 mls/hr IV.CONT UNSCH PRN PRN Reason: Heavy bleeding Ibuprofen (Motrin) 800 mg PO Q8H PRN PRN Reason: For Cramping Lactulose (Lactulose Liq) 30 ml PO DAILY PRN PRN Reason: SEVERE CONSITIPATION Naloxone HCl (Narcan Inj) 0.1 mg IV.PUSH Q2M PRN PRN Reason: for opiate reversal Ondansetron HCl (Zofran Odt) 4 mg PO Q6H PRN PRN Reason: NAUSEA OR VOMITING Vit/Calcium/Iron/Folic Ac (Stuartnatal Plus 3) 1 tab PO DAILY [facility] Last Admin: 04/30/18 09:05 Dose: 1 tab Senna/Docusate Sodium (Becky-Colace) 1 tab PO BID [facility] Last Admin: 04/30/18 09:05 Dose: 1 tab Sennosides (Senokot) 17.2 mg PO Q12H PRN PRN Reason: Moderate Constipation Sodium Chloride (Ns Flush) 2 ml IV.FLUSH BID [facility] Last Admin: 04/30/18 05:04 Dose: Not Given Sodium Chloride (Ns Flush) 2 ml IV.FLUSH UNSCH PRN PRN Reason: FLUSH AFTER USING IV ACCESS Witch Latoya/Glycerin (Tucks Pads) 1 applicatio RECTAL QID PRN PRN Reason: HEMORRHOIDS Zolpidem Tartrate (Ambien) 5 mg PO HS PRN PRN Reason: SLEEP Assessment and Plan - Diagnosis (1) (normal spontaneous vaginal delivery) Code(s): O80 - Encounter for full-term uncomplicated delivery Status: Acute - Plan pt doing well pain well managed with oral medication pt bottle feeding and pumping at this time she's ready to go home routine care Discharge Planning: dc home today if baby can be discharged
--- NOTE | 2018-04-30 13:24 | P.DS ---
Date of admission: 04/29/18 09:50 Primary care physician: No Primary Care Physician Attending physician on discharge: Chito Wilburn Anticipated date of discharge: 04/30/18 Brief History from admission: 40 weeks labor routine care DS: Diagnosis - Discharge Diagnosis (1) (normal spontaneous vaginal delivery) Status: Acute DS: Medications - Discharge Medications Prescriptions: ibuprofen 800 mg PO Q8H PRN #30 tab PRN Reason: For Cramping DS: Summary Hospital Course: 40 weeks gestation labor routine care - Time Spent with Patient Total time spent providing and/or coordinating discharge services: Less than 30 minutes Exam Vital signs: Vital Signs 04/29/18 13:27 04/29/18 13:45 04/29/18 14:00 Temperature Pulse Rate 64 68 Respiratory Rate 20 Blood Pressure 116/63 101/52 L 04/29/18 14:05 04/29/18 14:15 04/29/18 14:20 Temperature Pulse Rate 62 75 Respiratory Rate 20 Blood Pressure 104/63 105/64 04/29/18 14:45 04/29/18 14:55 04/29/18 15:00 Temperature 97.7 F Pulse Rate 93 H 77 114 H Respiratory Rate Blood Pressure 112/66 116/70 120/79 04/29/18 15:15 04/29/18 15:45 04/29/18 15:52 Temperature Pulse Rate 129 H 94 H Respiratory Rate Blood Pressure 131/59 L 118/84 04/29/18 16:00 04/29/18 16:16 04/29/18 16:31 Temperature Pulse Rate 183 H 72 Respiratory Rate Blood Pressure 106/86 94/74 L 113/79 04/29/18 17:00 04/29/18 17:45 04/29/18 20:00 Temperature 99.9 F H 99.1 F Pulse Rate 98 H 74 77 Respiratory Rate 16 18 Blood Pressure 98/75 L 108/72 109/68 04/30/18 07:44 04/30/18 07:45 Temperature 98.6 F Pulse Rate 62 Respiratory Rate 16 Blood Pressure 111/72 Intake & Output 04/29/18 04/30/18 04/30/18 18:59 06:59 18:59 Weight 72.575 kg Narrative: see pp note Results Procedures completed during hospitalization: Labs on day of discharge: Labs from last 24 hours 04/29/18 09:08 Urine Color Yellow Urine Clarity Hazy H Urine pH 7.0 Ur Specific [place] 1.012 Urine Protein Negative Urine Glucose (UA) Negative Urine Ketones Negative Urine Occult Blood Small H Urine Nitrate Negative Urine Bilirubin Negative Urine Urobilinogen Less than 2 Ur Leukocyte Esterase Moderate H Urine RBC 1 Urine WBC 9 H Ur Squamous Epith Cells 7 Urine Bacteria Occasional H Urine Mucus Few H Micro UA Comment Culture indicated Urine Culture Comments Culture indicated Preliminary micro results at discharge 04/29/18 09:08 Urine Culture - Preliminary Clean Catch Urine Staphylococcus coag negative Discharge Plan - Discharge Disposition Patient Disposition: 01 Discharge Home - Discharge Condition Condition: Stable - Discharge Order Discharge Orders: Discharge Order (Routine); Ordered 04/30/18 Ordered By: Chito Wilburn - Physicians Team Primary Care Provider: Primary Care Isabel Rizvi Attending Provider: Chito Wilburn
--- NOTE | 2018-05-01 08:29 | P.PNOB ---
Subjective Post day: 2 Interval history: Doing well Pain is controlled Baby is doing well Objective Vital Signs/I&O: Vital Signs 04/30/18 15:00 04/30/18 20:00 Temperature 98.1 F 98.2 F Pulse Rate 62 59 L Respiratory Rate 14 18 Blood Pressure 98/57 L 108/70 Result Diagrams: 04/29/18 10:10 Objective Remarks: GENERAL: Well-nourished, well-developed patient. CARDIOVASCULAR: Regular rate and rhythm without murmurs, gallops, or rubs. RESPIRATORY: Breath sounds equal bilaterally. No accessory muscle use. ABDOMEN/GI: Abdomen soft, non-tender. Fundus: Firm, non-tender at umbilicus. GENITOURINARY: Light to moderate bleeding. EXTREMITIES: No cyanosis or edema, non-tender, without signs of DVT. Medications and IVs: Active Medications Acetaminophen (Tylenol) 650 mg PO Q4H PRN PRN Reason: PAIN SCALE 1 TO 2 Al Hydroxide/Mg Hydroxide (Milk Of Magnesia Liq) 30 ml PO Q12H PRN PRN Reason: Mild Constipation Benzocaine (Americaine 20% [place]) 1 spray TOPICAL Q4H PRN PRN Reason: For Perineum Discomfort Bisacodyl (Dulcolax Supp) 10 mg RECTAL DAILY PRN PRN Reason: SEVERE CONSITIPATION Oxytocin (Pitocin 30 Units/Ns 500 Ml Premix) 30 units in 500 mls @ 2 mls/hr IV.SIG TITRATE PRN; Protocol PRN Reason: For induction of labor Last Admin: 04/29/18 13:26 Dose: 2 milliunit/min, 2 mls/hr Fentanyl/Bupivacaine/Sodium Chlor (Fentanyl 2 Mcg-Bupiv 0.125% Epi) 150 mls @ 10 mls/hr EPIDURAL PRN PRN PRN Reason: for Labor Pain Oxytocin (Pitocin 30 Units/Ns 500 Ml Premix) 30 units in 500 mls @ 100 mls/hr IV.CONT UNSCH PRN PRN Reason: Heavy bleeding Ibuprofen (Motrin) 800 mg PO Q8H PRN PRN Reason: For Cramping Lactulose (Lactulose Liq) 30 ml PO DAILY PRN PRN Reason: SEVERE CONSITIPATION Naloxone HCl (Narcan Inj) 0.1 mg IV.PUSH Q2M PRN PRN Reason: for opiate reversal Ondansetron HCl (Zofran Odt) 4 mg PO Q6H PRN PRN Reason: NAUSEA OR VOMITING Vit/Calcium/Iron/Folic Ac (Stuartnatal Plus 3) 1 tab PO DAILY REPLAC[facility] BY [facility] Last Admin: 04/30/18 09:05 Dose: 1 tab Senna/Docusate Sodium (Becky-Colace) 1 tab PO BID REPLAC[facility] BY [facility] Last Admin: 04/30/18 09:05 Dose: 1 tab Sennosides (Senokot) 17.2 mg PO Q12H PRN PRN Reason: Moderate Constipation Sodium Chloride (Ns Flush) 2 ml IV.FLUSH BID REPLACED BY [facility] Last Admin: 04/30/18 05:04 Dose: Not Given Sodium Chloride (Ns Flush) 2 ml IV.FLUSH UNSCH PRN PRN Reason: FLUSH AFTER USING IV ACCESS Witch Latoya/Glycerin (Tucks Pads) 1 applicatio RECTAL QID PRN PRN Reason: HEMORRHOIDS Zolpidem Tartrate (Ambien) 5 mg PO HS PRN PRN Reason: SLEEP Assessment and Plan - Diagnosis (1) (normal spontaneous vaginal delivery) Code(s): O80 - Encounter for full-term uncomplicated delivery Status: Acute - Plan pt doing well pain well managed with oral medication pt bottle feeding and pumping at this time she's ready to go home routine care Discharge Planning: dc home today if baby can be discharged
[2018-05-01 08:55] VITALS: BP 106/66; PULSE 58; RESP 16; TEMP 97.6
== END 2018-05-01 13:04 | disposition home or self-care (01) ==
LOC: HOBED 08:45 → H2E 09:50 → H1EA 18:50
PROVIDERS: ADMIT Obstetrics & Gynecology; ATTEND Obstetrics & Gynecology